=== PATIENT | female | born 1950 | race Caucasian/White ===

== ENCOUNTER 2018-07-22 09:31 | Emergency (ER) | payer BC ==
[~2018-07-22] VITALS: Ht 157.5 cm; Wt 93.0 kg
[~2018-07-22 09:31] MED LIST: LEVO125T8 PO; LEVO500T20 PO; POTA20TA83 PO; TRIA1CAP53 PO; VERA120T8 PO; VERA80TA2 PO
[2018-07-22 09:56] VITALS: BP_SYST 132
--- NOTE | 2018-07-22 10:08 | NUR ---
Patient to ER bed 3 to gown for evaluation. Side rails up. Report recieve from Matt VALENTIN.
--- NOTE | 2018-07-22 10:30 | NUR ---
Pt brought by partner, A&Ox4, pt presents to ER with blood in the stool bright red color, denies pain, pt ambulatory, respirations even and unlabored, cap refill <3, VS WNL.
[2018-07-22 10:35] LABS: EOSINOPHILS # (AUTO) 0.1 K/uL (0.0-0.4); EOSINOPHILS % (AUTO) 1.2 % (0.0-4.0); HEMATOCRIT 42.6 % (36-48); HEMOGLOBIN 14.4 g/dL (12.0-16.0); LYMPHOCYTES # (AUTO) 2.7 K/uL (1.0-5.5); LYMPHOCYTES % (AUTO) 27.6 % (20.5-51.5); MEAN CORPUSCULAR HEMOGLOBIN 29 pg (27-31); MEAN CORPUSCULAR HGB CONC 34 % (32-36); MEAN CORPUSCULAR VOLUME 85 fL (79.0-98.0); MONOCYTES # (AUTO) 0.5 K/uL (0.0-1.0); MONOCYTES % (AUTO) 4.9 % (1.7-9.3); PLATELET COUNT (AUTO) 308 K/uL (130-430); RED BLOOD CELL COUNT(AUTO) 5.02 MIL/uL (4.2-6.2); RED CELL DISTRIBUTION WIDTH 13.4 % (9.0-15.0); WHITE BLOOD COUNT (AUTO) 9.8 K/uL (4.8-10.8)
[2018-07-22 10:38] LABS: NEUTROPHILS # (AUTO) 6.5 K/uL (1.8-7.7); NEUTROPHILS % (AUTO) 68.3 % (40.0-70.0)
[2018-07-22 10:42] LABS: CALCIUM 9.7 mg/dL (8.4-11.0); CREATININE 0.82 mg/dL (0.55-1.30); POTASSIUM 3.4 mmol/L (3.5-5.1)
[2018-07-22 10:46] LABS: PROTHROMBIN TIME 10.4 SECS (9.5-12.5)
[2018-07-22 10:47] LABS: ALBUMIN 3.6 g/dL (3.4-4.8); TOTAL BILIRUBIN 0.5 mg/dL (0.0-1.0)
--- NOTE | 2018-07-22 12:30 | NUR ---
Dr Olivo at bedside examining patient
[2018-07-22 14:01] LABS: BILIRUBIN,URINE NEGATIVE (NEGATIVE); BLOOD, URINE 3+ (NEGATIVE); CLARITY/URINE CLEAR (CLEAR); COLOR,URINE YELLOW (YELLOW); GLUCOSE,URINE NEGATIVE (NEGATIVE); KETONES,URINE NEGATIVE (NEGATIVE); LEUKOCYTE ESTERASE ,URINE 2+ (NEGATIVE); NITRITE, URINE NEGATIVE (NEGATIVE); PROTEIN URINE NEGATIVE (NEGATIVE); UROBILINOGEN,URINE 0.2 (0.2-1.0)
[2018-07-22 14:11] LABS: BACTERIA,URINE FEW /HPF (None Seen); YEAST,URINE None Seen /HPF (None Seen)
[2018-07-22 14:12] LABS: MUCUS,URINE None Seen /LPF (None Seen)
--- NOTE | 2018-07-22 14:21 | NUR ---
ER Dr. Reddy at bedside explaining results to patient.
[2018-07-22 14:37] VITALS: BP_SYST 125
--- NOTE | 2018-07-22 14:37 | NUR ---
Patient given written and verbal discharge instructions and verbalizes understanding. ER MD discussed with patient the results and treatment provided. Patient in stable condition. ID arm band removed. No Rx given. Patient educated on pain management and to follow up with PMD. Pain Scale 0. Opportunity for questions provided and answered. Medication side effect fact sheet provided.
== END 2018-07-22 14:37 | disposition home or self-care (01) ==
LOC: SED 09:31
DX: K57.91 Diverticulosis of intestine, part unspecified, without perforation or abscess with bleeding (principal); I10 Essential (primary) hypertension; Z79.899 Other long term (current) drug therapy; Z88.2 Allergy status to sulfonamides
CPT/HCPCS: 36415; 80053; 81000-TC; 83690-TC; 85025; 85610-TC; 85730-TC; 87086; 99285